=== PATIENT | male | born 1975 | race African-American/Black ===

== ENCOUNTER 2020-06-15 06:13 | Emergency (ER) | payer MEDICAID ==
[~2020-06-15] VITALS: Ht 175.3 cm; Wt 77.0 kg
[2020-06-15 06:23] VITALS: BP 156/92
== END 2020-06-15 10:22 | disposition left against medical advice (07) ==
LOC: ER 06:13
DX: E10.649 Type 1 diabetes mellitus with hypoglycemia without coma (principal); I10 Essential (primary) hypertension; Z79.4 Long term (current) use of insulin
CPT/HCPCS: 82962; 99281